=== PATIENT | female | born 1945 | race Caucasian/White ===

== ENCOUNTER 2016-09-04 09:11 | Day surgery (SDC) | payer MEDICARE, BC ==
[~2016-09-04] VITALS: Ht 165.1 cm; Wt 79.4 kg
--- NOTE | ~2016-09-04 | OR ---
PATIENT'S NAME: HUSSAIN CHARLES [facility] AGE: 70 Y [address] ROOM: [place] [address] LOCATION: [facility] [place] ADMIT DATE: 09/04/2016 OR/Procedure Report DISCHARGE DATE: 09/04/2016 FAMILY PHYSICIAN: Don Tirado MD ATTENDING PHYSICIAN: Michael Lr SURGEON: Michael Lr MD VETERINARY VIROLOGIST: India Rush PA-C. DATE OF PROCEDURE: 09/04/2016 PREOPERATIVE DIAGNOSIS: Cholelithiasis. POSTOPERATIVE DIAGNOSIS: Cholelithiasis. PROCEDURE PERFORMED: Robotic cholecystectomy. ANESTHESIA: General endotracheal. ESTIMATED BLOOD LOSS: 10 mL. SPECIMEN: Gallbladder. REASON FOR PROCEDURE: The patient is a 70-year-old female, who has had some recurrent nonspecific upper abdominal pain. An ultrasound showed cholelithiasis. There is no evidence of duct dilatation. Her liver function tests were normal. After discussing the risks and benefits, she proceeded to decide on cholecystectomy. PROCEDURE IN DETAIL: The patient was taken to the operating suite and placed in the supine position. After general endotracheal anesthesia was obtained, the abdomen was prepped with ChloraPrep and sterilely draped. Marcaine was infiltrated into the incision sites. A 2 cm transverse infraumbilical incision was made. The fascia was grasped and elevated, and a Veress needle was used to obtain a pneumoperitoneum. An 8 mm robotic trocar was then passed across the abdominal wall. The camera was then advanced through this trocar. Three other robotic trocars were then placed under direct visualization. The robot was docked and oriented towards the gallbladder. The fundus of the gallbladder was grasped and elevated. A second grasper was placed on the infundibulum. We used the hook cautery to dissect through the neck area of the gallbladder. The cystic duct and cystic artery were skeletonized. These were clipped proximally and distally and then divided with the hook cautery. The gallbladder was then mobilized free off the liver bed using cautery. We did have some spillage of bile from the gallbladder. Once fully mobilized, the gallbladder was placed up over the liver bed. The instruments were withdrawn, and the robot was undocked. An endoscopic retrieval bag was then placed through the umbilicus, and the gallbladder was placed within it. The PATIENT'S NAME: KENAGY, ATRICIA L [facility] AGE: 70 Y [address] ROOM: [place] [address] LOCATION: [facility] [place] ADMIT DATE: 09/04/2016 OR/Procedure Report DISCHARGE DATE: 09/04/2016 FAMILY PHYSICIAN: Don Tirado MD ATTENDING PHYSICIAN: Michael Lr gallbladder was retracted through the umbilicus. We did have to stretch the fascial opening just slightly to allow removal of the stone. We then washed out the right upper quadrant. There were no signs of any ongoing bleeding or bile leak. The surgical clips were in place. Trocars were withdrawn, and the pneumoperitoneum was evacuated. The fascia at the umbilicus was closed with a Vicryl suture. The skin incisions were all closed with subcuticular Monocryl. Benzoin, Steri-Strips, and gauze dressings were then applied to the incisions. POSTPROCEDURE PLAN: The patient will be sent to recovery and if doing okay, we will plan on discharging her home today. She will get a prescription for [place] for pain control. We will see her in the office in a couple weeks for recheck. She is to call sooner if any problems. MICHAEL LR MD JTM/modl /[id number] CC: Don Tirado MD d: 09/04/162031 t: 09/08/16901, OPERATIVE SUMMARY
[2016-09-04] MEDS ORDERED: NORCO 5-325 TA1 EACH PO (12:34)
== END 2016-09-04 14:42 | disposition disaster alternative care site (69) ==
LOC: GSDC 09:11
PROC: 0FT44ZZ Resection of Gallbladder, Percutaneous Endoscopic Approach (ICD-10-PCS; principal; 2016-09-04)
PROC: 8E0W4CZ Robotic Assisted Procedure of Trunk Region, Percutaneous Endoscopic Approach (ICD-10-PCS; 2016-09-04)
DX: K80.10 Calculus of gallbladder with chronic cholecystitis without obstruction (principal); Z85.42 Personal history of malignant neoplasm of other parts of uterus; Z90.710 Acquired absence of both cervix and uterus; Z98.890 Other specified postprocedural states
CPT/HCPCS: J0694; J1100; J2001; J2405; J2550; J3010; J7030